=== PATIENT | female | born 1990 | race African-American/Black ===

== ENCOUNTER 2019-12-07 09:16 | Emergency (ER) | payer OTHER, SELFPAY ==
[2019-12-07 09:29] VITALS: BP 119/61; PULSE 92; RESP 99; TEMP 37.1; O2SAT 99
--- NOTE | 2019-12-07 10:46 | ED.GENADULT ---
HPI - General Adult General Chief complaint: Unspecified Stated complaint: feet and ankle swelling x 2 weeks Time Seen by Provider: 12/07/19 10:18 Source: patient Mode of arrival: ambulatory Limitations: no limitations History of Present Illness HPI narrative: Pt is a 29 y/o female who is that presents to the ED with c/o swelling to MYA ankles for 2 weeks that worsened today. 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 Pt states that she been off work for a month and she went back to work 2 days ago. She notes that she was not on her feet like usual 2 days ago because she was watching movies all night. Pt denies urinary Sx, N/V, fever, chills. She states that she has a H/o asthma but denies a H/o HTN. complaint: swelling to ankles Onset (ago): week(s) (2) Location: lower extremity (MYA ankles) Relieving factors: none Exacerbating factors: none Associated symptoms: denies other symptoms Related Data Home Medications Medication Instructions Recorded Confirmed No Home Medications 09/19/19 09/19/19 Allergies Allergy/AdvReac Type Severity Reaction Status Date / Time No Known Allergies Allergy Verified 09/19/19 10:26 Review of Systems Review of Systems: All systems reviewed & are unremarkable except as noted in HPI and below Constitutional: Constitutional: Denies chills and Denies fever(s) Gastrointestinal: Gastrointestinal: Denies nausea and Denies vomiting Genitourinary: Genitourinary: Denies other (urinary Sx) Musculoskeletal: Musculoskeletal: Reports other (swelling to MYA ankles) PMFSH Past Medical History Medical History (Updated 12/07/19 @ 11:53 by Josr Garg MD) Asthma Surgical History Surgical History (Updated 12/07/19 @ 11:30 by Shamika White) Hx of tonsillectomy Social History Social History Smoking status: Never smoker Substance use type: marijuana Gender identity (if verbalized by the patient): Female Exam Narrative: Exam Narrative: GENERAL: Well-appearing, well-nourished, and in no acute distress. HEAD: Normocephalic, atraumatic. EYES: PERRLA and EOMI. ENT: Nares clear, no rhinorrhea or epistaxis. Mucous membranes moist. NECK: Supple. CHEST: Clear to auscultation. No respiratory distress. HEART: Regular rate and rhythm. No murmur heard. Normal peripheral pulses. ABDOMEN: Soft, non tender, non distended, normal active bowel sounds. EXTREMITIES: Normal range of motion. mild edema. SKIN: Warm, dry, no rash. NEURO: No focal deficits. Alert and oriented x3. PSYCH: Normal mood and affect. Course Course Emergency Course: Inform patient about her lab work. Advised to keep her legs elevated or wear knee highs. Also recommended to cut down salt intake. Follow-up with OB doctor in the next few days. Vital Signs Vital signs: Vital Signs Temperature 37.1 C 12/07/19 09:29 Pulse Rate 92 12/07/19 09:29 Respiratory Rate 99 H 12/07/19 09:29 Blood Pressure 119/61 12/07/19 09:29 Pulse Oximetry 99 12/07/19 09:29 Temperature 37.1 C 12/07/19 09:29 Pulse Rate 92 12/07/19 09:29 Respiratory Rate 99 H 12/07/19 09:29 Blood Pressure 119/61 12/07/19 09:29 Pulse Oximetry 99 12/07/19 09:29 Medical Decision Making Vital Signs Vital Signs: Vital Signs Temperature 37.1 C 12/07/19 09:29 Pulse Rate 92 12/07/19 09:29 Respiratory Rate 99 H 12/07/19 09:29 Blood Pressure 119/61 12/07/19 09:29 Pulse Oximetry 99 12/07/19 09:29 Temperature 37.1 C 12/07/19 09:29 Pulse Rate 92 12/07/19 09:29 Respiratory Rate 99 H 12/07/19 09:29 Blood Pressure 119/61 12/07/19 09:29 Pulse Oximetry 99 12/07/19 09:29 Lab Data Result diagrams: 12/07/19 10:49 12/07/19 10:49 Labs: Lab Results 12/07/19 12/07/19 12/07/19 Range/Units 10:49 10:49 10:49 WBC 12.1 H (4.5-10.0) K/mm3 RBC 3.89 L (4.2-5.4) M/mm3
[2019-12-07 10:57] LABS: Basophils Percent Auto 0.3 % (0.2-1.2); Eosinophils Absolute Auto 0.2 K/mm3 (0-0.3); Eosinophils Percent Auto 1.7 % (0-4.4); Hematocrit 32.6 % (37.0-47.0); Hemoglobin 10.4 g/dL (12.0-15.0); Immature Granulocyte Absolute 0.07 K/mm3 (0.00-0.031); Immature Granulocyte Percent A 0.6 % (0-0.5); Lymphocytes Absolute Auto 1.93 K/mm3 (0.9-3.2); Mean Corpuscular HGB Conc 31.9 g/dl (32-36); Mean Corpuscular Hemoglobin 26.7 pg (26-34); Mean Corpuscular Volume 83.8 fl (80-100); Monocytes Absolute Auto 0.9 K/mm3 (0.1-0.6); Monocytes Percent Auto 7.6 % (2.6-8.5); Neutrophils Absolute Auto 8.9 K/mm3 (1.3-6.7); Neutrophils Percent Auto 73.8 % (45.5-73.1); Platelet Count Result 331 k/mm3 (150-375); Red Blood Count 3.89 M/mm3 (4.2-5.4); Red Cell Distribution Width 15.9 % (11.5-14.5); White Blood Count 12.1 K/mm3 (4.5-10.0)
[2019-12-07 11:01] LABS: Add Urine Microscopic? YES; Appearance Urine Cloudy (Clear); Bacteria Urine Trace /hpf; Bilirubin Urine Negative (Negative); Blood Urine Negative (Negative); Color Urine Yellow (Yellow); Glucose Urine UA Negative (Negative); Ketones Urine Negative (Negative); Leukocyte Esterase Ur 2+ LEU/UL (Negative); Mucus Urine Few /lpf; Nitrate Urine Negative (Negative); Protein Urine 1+ mg/dL (Negative); RBC Urine 0-2 /hpf (0-2); Squamous Epithelial Cell Urine Many /hpf (Few); Urobilinogen Urine Negative mg/dL (<2.0); WBC Urine 0-3 /hpf
[2019-12-07 11:10] LABS: Alanine Aminotransferase 9 U/L (4-35); Albumin Level 3.2 g/dL (3.5-5.1); Alkaline Phosphatase 43 U/L (38-126); Aspartate Amino Transferase 15 U/L (14-36); Bilirubin,Total 0.1 mg/dL (0.2-1.3); Blood Urea Nitrogen 5 mg/dL (7-17); Calcium 8.5 mg/dL (8.4-10.2); Carbon Dioxide 23 mmol/L (22-30); Chloride 106 mmol/L (98-107); Estimated CRCL calculation 149 ml/min; Estimated Glomerular Filt Rate > 60; Glucose 76 mg/dL (65-105); Potassium 3.6 mmol/L (3.4-5.0); Sodium 135 mmol/L (137-145)
[2019-12-07 11:58] VITALS: BP 120/78; PULSE 97; RESP 18; O2SAT 99
== END 2019-12-07 11:59 | disposition home or self-care (01) ==
PROVIDERS: Emergency Provider Family Medicine
DX: O26.899 Other specified pregnancy related conditions, unspecified trimester (principal); R60.0 Localized edema; O99.519 Diseases of the respiratory system complicating pregnancy, unspecified trimester; J45.909 Unspecified asthma, uncomplicated; Z3A.00 Weeks of gestation of pregnancy not specified
CPT/HCPCS: 36415; 80053; 81001; 85025; 99283

== ENCOUNTER 2020-04-18 12:56 | Inpatient (IN) | payer OTHER, SELFPAY ==
[2020-04-18] VITALS (17 sets, daily range): BP systolic 104–129; BP diastolic 57–86; PULSE 66–154; RESP 18; TEMP 36.8–37.2; O2SAT 97; BMI 32.1
[2020-04-18 15:26] LABS: Basophils Percent Auto 0.3 % (0.2-1.2); Eosinophils Absolute Auto 0.1 K/mm3 (0-0.3); Eosinophils Percent Auto 0.4 % (0-4.4); Hematocrit 36.5 % (37.0-47.0); Hemoglobin 11.8 g/dL (12.0-15.0); Immature Granulocyte Absolute 0.05 K/mm3 (0.00-0.031); Immature Granulocyte Percent A 0.3 % (0-0.5); Lymphocytes Absolute Auto 2.84 K/mm3 (0.9-3.2); Lymphocytes Percent Auto 18.3 % (18.3-44.2); Mean Corpuscular HGB Conc 32.3 g/dl (32-36); Mean Corpuscular Hemoglobin 25.4 pg (26-34); Mean Corpuscular Volume 78.7 fl (80-100); Mean Platelet Volume 9.5 fl (7.4-10.4); Monocytes Absolute Auto 1.4 K/mm3 (0.1-0.6); Monocytes Percent Auto 9.1 % (2.6-8.5); Neutrophils Absolute Auto 11.2 K/mm3 (1.3-6.7); Neutrophils Percent Auto 71.6 % (45.5-73.1); Platelet Count Result 357 k/mm3 (150-375); Red Blood Count 4.64 M/mm3 (4.2-5.4); Red Cell Distribution Width 16.2 % (11.5-14.5); White Blood Count 15.6 K/mm3 (4.5-10.0)
[2020-04-18] MEDS: LACTATED RINGERS 1,000 ML 125 ML IV CONT (15:28)
[2020-04-18] MEDS: AMPICILLIN 2 GM/NS 100 ML 2 GM/100 ML BAG IVPB (15:28)
[2020-04-18] MEDS: OXYTOCIN 30 UNITS/NS 500 ML 30 UNITS/500 ML BAG 999 UNITS IV CONT (15:54)
--- NOTE | 2020-04-18 15:59 | P.PCNOB_ITS ---
OB - Delivery Note Procedure Delivery date: 04/18/20 Route of delivery: Episiotomy description: None Laceration description: None Specimen: No Estimated blood loss (mL): 200 Anesthesia type: None Disposition: floor Narrative: Patient prepped and draped in usual manner for this procedure. Maternal expulsive efforts readily delivered vertex and the rest of baby delivered without difficulty. Placenta was delivered without difficulty. Cervix vagina and vulva were inspected with no lacerations or tears. At this point the uterus was well contracted there was minimal bleeding and the procedure was considered terminated. [place] Baby Weeks of gestation at delivery: 39 gender: Female Weight (pounds): 6 Weight (ounces): 2 score one minute: 8 score five minutes: 9
--- NOTE | 2020-04-18 15:59 | WPDHPUPDATE1 ---
History and Physical Update Update Date/Time: 04/18/20 15:59 History and Physical has been reviewed, including an updated exam of the patient. There are NO changes in the patient's condition. Risks, benefits, and alternatives have been discussed and questions answered. Patient agrees to proceed with procedure.
--- NOTE | 2020-04-18 15:59 | WPDOBADMIT ---
Obstetrics - Admit Note Admission Note: record reviewed. No pertinent additions to the history and/or any subsequent changes in the physical findings that are not consistent with the expected course of the were found. Additions to the history and/or subsequent changes in the physical findings follow. None.
[2020-04-18] MEDS: OXYTOCIN 30 UNITS/NS 500 ML 30 UNITS/500 ML BAG 125 UNITS IV CONT (16:14)
[2020-04-18] MEDS: IBUPROFEN 600 MG TABLET PO (16:40)
--- NOTE | 2020-04-18 16:58 | LDADM ---
This patient, Jessica Perez, was admitted to Labor/Delivery/Recovery 106 on 04/18/20 at 12:57. Plans for labor, pain management and were discussed with patient. Patient/family oriented to hospital policies and general routines including ID bracelet, bed and alarms, visiting hours, pain management, procedures, bathroom and other care routines, personal items, smoking policy, room service/diet and guest tray routines, security routines, and visiting hours. Patient/Family are encouraged to report perceived risks to care and to ask questions if they do not understand what they are told or what they should do. See OBIX for further documentation.
[2020-04-18] MEDS: WITCH HAZEL 40 PADS 1 PAD TOPICAL (18:57)
--- NOTE | 2020-04-18 19:10 | PC.NURSE ---
Patient transferred to post room # via ( ). Support person present. Oriented to unit, room, information board, rooming in, admission packet and security measures. Patient verbalizes understanding.
--- NOTE | 2020-04-18 19:10 | PC.NURSE ---
Patient transferred to post room # 286 . Support person present. Oriented to unit, room, information board, rooming in, admission packet and security measures. Patient verbalizes understanding.
[2020-04-18] MEDS: ACETAMINOPHEN 325 MG TABLET 650 MG PO (20:27)
[2020-04-19] MEDS: ACETAMINOPHEN 325 MG TABLET 650 MG PO (02:31)
[2020-04-19 03:49] LABS: Hemoglobin 9.7 g/dL (12.0-15.0)
--- NOTE | 2020-04-19 07:00 | P.DS_ITS ---
OB - DS: Summary OB Procedures : None OB Procedures Intrapartum: Spontaneous Vag Delivery OB Procedures: : None Time Spent with Patient Time attestation: Total time spent providing and/or coordinating discharge services: DS: Data Data Completed and Pending Labs on day of discharge: Labs from last 24 hours 04/19/20 04/18/20 04/18/20 03:41 15:19 15:19 WBC RBC Hgb 9.7 L Hct 30.0 L MCV MCH MCHC RDW Plt Count MPV Immature Gran % (Auto) Neut % (Auto) Lymph % (Auto) [place] % (Auto) Eos % (Auto) Baso % (Auto) Lymph # (Auto) [place] # (Auto) Eos # (Auto) Baso # (Auto) Abs Immat Gran (auto) Absolute Neuts (auto) Absolute Nucleated RBC Nucleated RBC % RPR Pending Blood Type B Positive Antibody Screen Negative 04/18/20 15:19 WBC 15.6 H RBC 4.64 Hgb 11.8 L Hct 36.5 L MCV 78.7 L MCH 25.4 L MCHC 32.3 RDW 16.2 H Plt Count 357 MPV 9.5 Immature Gran % (Auto) 0.3 Neut % (Auto) 71.6 Lymph % (Auto) 18.3 [place] % (Auto) 9.1 H Eos % (Auto) 0.4 Baso % (Auto) 0.3 Lymph # (Auto) 2.84 [place] # (Auto) 1.4 H Eos # (Auto) 0.1 Baso # (Auto) 0.0 Abs Immat Gran (auto) 0.05 H Absolute Neuts (auto) 11.2 H Absolute Nucleated RBC 0.0 Nucleated RBC % 0.0 RPR Blood Type Antibody Screen Discharge Plan Discharge Discharging Clinician: Tee Glass Anticipated Discharge Date/Time: 04/20/20 07:00 Patient Disposition: Home, Self-Care Activity: as tolerated Diet: as tolerated Patient Instructions: Antibiotic Form Stand Alone Forms: General Discharge Information Follow-up/Referrals: Tee Glass MD [Physician] - 3 Weeks Discharge Medications: New hydrocodone-acetaminophen 5-325 mg Tablet 1 tablet PO Q3H PRN (Reason: Moderate Pain (4-6)) Qty: 10 RF: 0 ibuprofen 600 mg Tablet 600 mg PO Q6H PRN (Reason: Cramping) Qty: 20 RF: 0 No Action No Home Medications RF: 0 Date of admission: 04/18/20 12:57 Primary Care Provider: Dima Joy Admitting Provider: Tee Glass Attending physician on admission: Tee Glass
[2020-04-19] MEDS: IBUPROFEN 600 MG TABLET PO ×2 (08:49→16:28)
[2020-04-19 08:50] VITALS: BP 113/76; PULSE 62; RESP 15; TEMP 37.1; O2SAT 100
[2020-04-19 11:27] LABS: Rapid Plasma Reagin Non-Reactive (NonReactive)
--- NOTE | 2020-04-19 13:01 | PC.NURSE ---
Pt went outside for a minute. Left at nurses station/
[2020-04-19] MEDS: DOCUSATE SODIUM 100 MG CAPSULE PO (16:25)
[2020-04-19] MEDS: POLYSACCHARIDE IRON COMPLEX 150 MG CAPSULE PO (16:27)
[2020-04-19 20:25] VITALS: BP 110/70; PULSE 73; RESP 12; TEMP 37.6
[2020-04-20 08:35] VITALS: BP 113/68; PULSE 73; RESP 18; TEMP 37.5; O2SAT 100
[2020-04-20] MEDS: POLYSACCHARIDE IRON COMPLEX 150 MG CAPSULE PO (08:47)
[2020-04-20] MEDS: IBUPROFEN 600 MG TABLET PO (08:47)
[2020-04-20] MEDS: DOCUSATE SODIUM 100 MG CAPSULE PO (08:48)
[2020-04-23 11:19] VITALS: BP 114/68; PULSE 59; RESP 18; TEMP 36.6
--- NOTE | 2020-04-30 11:25 | P.DS_ITS ---
DS: Admitting Diagnosis Admitting Diagnosis Admitting Diagnosis: Encounter for supervision of normal , unspecified, third trimester OB - DS: Summary OB Procedures : None OB Procedures Intrapartum: Spontaneous Vag Delivery OB Procedures: : None Time Spent with Patient Time attestation: Total time spent providing and/or coordinating discharge services: Discharge Plan Discharge Discharging Clinician: Tee Glass Anticipated Discharge Date/Time: 04/20/20 07:00 Patient Disposition: Home, Self-Care Activity: as tolerated Diet: as tolerated Discharge Instructions: Education: Mom and Baby Guide Given to: Mother Follow-Up: Call your delivering provider's office for an appointment to be seen in: 3 weeks Mom and baby should come to the [facility] for the follow-up appointment. Appointment Date/Time: Thursday, April 23, 2020 at 11:00 a.m. What to expect at your follow-up visit: Blood Pressure Check Physical Assessment Call [phone] if you are unable to keep your appointment time. BREAST CARE: 1. Wear a snug supportive bra. 2. For engorgement discomfort: Bottle Feeding: A. May apply ice packs EPISIOTOMY/PERINEAL CARE: 1. Until bleeding stops, use your ney bottle after urinating 2. Change your pad frequently throughout the day 3. You may take sitz baths several times a day (fill your bathtub with warm water and soak for 20 minutes.) Do NOT bathe in the water 4. No tub baths until seen by your physician - You may shower ACTIVITY: 1. Rest as much as possible. 2. Do not exercise or lift anything heavier than your baby (such as laundry or other children.) 3. Avoid stairs or driving as much as possible. 4. Do not put anything into the vagina. No douching, tampons, or sexual activity until seen by physician. NOTIFY PHYSICIAN IF YOU HAVE ANY QUESTIONS OR IF ANY OF THE FOLLOWING SYMPTOMS OCCUR: 1. If your perineum becomes red, swollen, or more painful than what you have experienced in the hospital. 2. If your vaginal bleeding becomes foul smelling. 3. If your vaginal bleeding becomes more heavy than a period or if your bleeding changes from pink to bright red. However, you may pass an occasional walnut- sized clot once or twice for the first week . 4. If you experience a sharp, shooting pain in you calves. 5. If you discover a hard, reddened area on your breast or if you experience flu-like symptoms. DIET: 1. Eat regular, well-balanced meals. 2. Drink plenty of fluids daily. Stand Alone Forms: General Discharge Information Follow-up/Referrals: Tee Glass MD [Physician] - 3 Weeks Discharge Medications: New ibuprofen 600 mg Tablet 600 mg PO Q6H PRN (Reason: Cramping) Qty: 20 RF: 0 hydrocodone-acetaminophen 5-325 mg Tablet 1 tablet PO Q3H PRN (Reason: Moderate Pain (4-6)) Qty: 10 RF: 0 Date of admission: 04/18/20 12:57 Primary Care Provider: Dima Joy Admitting Provider: Tee Glass Discharge Date/Time: 04/20/20 14:06 Attending physician on admission: Tee Glass
== END 2020-04-20 14:06 | disposition home or self-care (01) | DRG 560 ==
LOC: ANHLDR 15:12 → ANHOB2 19:17
PROVIDERS: Admitting Provider Obstetrics & Gynecology; PCP Obstetrics & Gynecology; Visit Provider Obstetrics & Gynecology
DX: O62.3 Precipitate labor (principal); O99.824 Streptococcus B carrier state complicating childbirth; Z3A.39 39 weeks gestation of pregnancy; Z37.0 Single live birth
CPT/HCPCS: 36415; 85014; 85018; 85025; 86592; 86850; 86900; 86901; A9270; J0290; J2590; J7120

== ENCOUNTER 2021-05-06 10:25 | Emergency (ER) | payer OTHER, SELFPAY ==
--- NOTE | ~2021-05-06 | XR_ITS ---
EXAMINATION: XR lumbar spine 2-3V DATE: 05/06/2021 11:51 INDICATION: Low back pain. TECHNIQUE: Anteroposterior and lateral views of the lumbar spine, and cone-down lateral view of the l umbosacral junction were obtained. COMPARISON: 02/15/2015 FINDINGS: Alignment is normal. Vertebral body and disc heights are normal. No significant lumbar facet osteoart hritis. Bilateral hip and sacroiliac joint spaces are also normal. Sacral arches are intact. Couple p hleboliths in the pelvis. Normal bowel gas pattern. IMPRESSION: 1. Negative lumbar spine radiographs. Reviewed, dictated and finalized at location A.
[2021-05-06 10:34] VITALS: BP 105/63; PULSE 76; RESP 18; TEMP 37; O2SAT 98
--- NOTE | 2021-05-06 11:46 | ED.BACK ---
HPI - Back Pain/Injury General Chief Complaint: Back Pain/Injury Stated Complaint: back pain x 1 week Time Seen by Provider: 05/06/21 10:35 Source: patient Mode of arrival: ambulatory Limitations: no limitations History of Present Illness HPI Narrative: This is a 30 year old female that presents to the ER for low back pain worsening over the last couple of days. Reports history of low back problems for years. No recent injury or trauma. She took ibuprofen this morning with little relief. Denies fever, dysuria, hematuria, saddle anesthesia, or bowel/bladder incontinence. Related Data Allergies Allergy/AdvReac Type Severity Reaction Status Date / Time No Known Allergies Allergy Verified 05/06/21 10:38 Review of Systems Review of Systems: Narrative: CONSTITUTIONAL: Denies fever GENITOURINARY: Denies dysuria or hematuria. SKIN: Denies rash MUSCULOSKELETAL: Reports back pain, joint pain, and myalgia. NEUROLOGIC: Denies numbness, or weakness. All systems reviewed & are unremarkable except as noted in HPI and below PMFSH Past Medical History Medical History (Updated 05/06/21 @ 12:48 by Lela Feliz PA-C) Asthma Surgical History Surgical History (Updated 12/07/19 @ 11:30 by Shamika White) Hx of tonsillectomy Social History Social History Smoking status: Never smoker Substance use type: marijuana Gender identity (if verbalized by the patient): Female Spiritual care concerns: No Exam Narrative: Exam Narrative: GENERAL: Well-appearing, well-nourished, and in no acute distress. HEAD: Normocephalic, atraumatic. EYES: EOMI. CHEST: Clear to auscultation. No respiratory distress. No wheezes rales or rhonchi HEART: Regular rate and rhythm. No murmur heard. Normal peripheral pulses. BACK: No midline spinal tenderness. EXTREMITIES: Normal range of motion. No edema. Strength equal in bilateral lower extremities (5/5) SKIN: Warm, dry, no rash. NEURO: No focal deficits. Alert and oriented x3. PSYCH: Normal mood and affect Course Vital Signs Vital signs: Vital Signs Temperature 98.6 F 05/06/21 10:34 Pulse Rate 76 05/06/21 10:34 Respiratory Rate 18 05/06/21 10:34 Blood Pressure 105/63 05/06/21 10:34 Pulse Oximetry 98 05/06/21 10:34 Temperature 98.6 F 05/06/21 10:34 Pulse Rate 76 05/06/21 10:34 Respiratory Rate 18 05/06/21 10:34 Blood Pressure 105/63 05/06/21 10:34 Pulse Oximetry 98 05/06/21 10:34 MDM - Back Pain/Injury MDM Narrative Medical decision making narrative: Patient presents to the emergency department for low back pain over the last couple of days. No recent injury or trauma. She is neurologically intact. Lumbar spine x-rays without acute findings. Patient reports improvement with Tylenol and Valium. She was instructed to rest, ice and take [id number] pain medications as needed. Will be given muscle relaxer as needed for pain. She is to follow-up with her primary care doctor. She was given warnings to return to the ER Imaging Data Radiologist's impression: ITS Impressions Lumbar Spine X-Ray 05/06/21 11:59 IMPRESSION: 1. Negative lumbar spine radiographs. Critical Care Time Critical Care Time Critical Care Time: No Discharge Plan Discharge Clinical Impression: Strain of lumbar region Qualifiers: Encounter type: initial encounter Qualified Code(s): S39.012A - Strain of muscle, fascia and tendon of lower back, initial encounter Patient Disposition: Home, Self-Care Condition: Stable Instructions: Acute Low Back Pain (ED) Additional Instructions: Return to the ER if you experience fever, pain or burning with urination, blood in the urine, weakness, numbness, bowel/bladder incontinence, or any other symptoms that are concerning to you Rest, use ice/heat, take anti-inflammatories (Aleve, Ibuprofen, Naproxen, etc) or Tylenol as needed for pain as well as muscle re
[2021-05-06] MEDS: ACETAMINOPHEN 500 MG TABLET 1000 MG PO (12:03)
[2021-05-06] MEDS: diazePAM INJ (*CRX) 10 MG/2 ML SYRINGE 5 MG IM (12:04)
[2021-05-06 13:22] VITALS: BP 107/68; PULSE 78; RESP 20; O2SAT 98
== END 2021-05-06 13:23 | disposition home or self-care (01) ==
PROVIDERS: Emergency Provider Emergency Medicine; PCP Obstetrics & Gynecology
DX: S39.012A Strain of muscle, fascia and tendon of lower back, initial encounter (principal); X58.XXXA Exposure to other specified factors, initial encounter
CPT/HCPCS: 72100; 96372; 99283; A9270; J3360

== ENCOUNTER 2023-03-18 11:06 | Emergency (ER) | payer OTHER, SELFPAY ==
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
--- NOTE | ~2023-03-18 | XR_ITS ---
Lumbosacral Spine: AP and lateral views Clinical History: Pain Findings: The normal lordotic curve is maintained. The vertebral bodies and posterior elements are i ntact. The intervertebral disc spaces are preserved. The sacroiliac joints are normally outlined. Impression: No significant abnormality. Reviewed, dictated and finalized at [facility]. Impression: No significant abnormality.
[2023-03-18 11:12] VITALS: BP 109/44; PULSE 78; RESP 16; TEMP 36.9; O2SAT 98
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
== END 2023-03-18 12:38 | disposition home or self-care (01) ==
PROVIDERS: Emergency Provider Nurse Practitioner Family; PCP Obstetrics & Gynecology
DX: S39.92XA Unspecified injury of lower back, initial encounter (principal); S20.212A Contusion of left front wall of thorax, initial encounter; J45.909 Unspecified asthma, uncomplicated; V43.52XA Car driver injured in collision with other type car in traffic accident, initial encounter
CPT/HCPCS: 71046; 71100; 72100; 99284

== ENCOUNTER 2023-05-25 14:51 | Outpatient (CLI) | payer OTHER, SELFPAY ==
--- NOTE | ~2023-05-25 | MM_ITS ---
EXAMINATION: MM screening zack BI w sean HISTORY: Screening TECHNIQUE: Craniocaudal and mediolateral oblique 3-D tomosynthesis images were obtained and synthetic 2-D images were generated. CAD analysis was submitted and interpreted. COMPARISON: No prior studies for comparison. BREAST PARENCHYMAL COMPOSITION: There are scattered areas of fibroglandular density. FINDINGS: There are focal asymmetries in the central aspect of the left breast on CC view. There is no mammographic evidence for malignancy in the right breast. IMPRESSION: 1. Nodular left breast asymmetries located centrally. 2. Additional mammographic views and possible breast ultrasound are recommended. BI-RADS Category 0: Incomplete: Needs additional imaging evaluation. Reviewed, dictated and finalized at location A. IMPRESSION: 1. Nodular left breast asymmetries located centrally. 2. Additional mammographic views and possible breast ultrasound are recommended . BI-RADS Category 0: Incomplete: Needs additional imaging evaluation.
== END 2023-05-25 14:52 | disposition home or self-care (01) ==
LOC: ANHIMG 14:55
PROVIDERS: PCP Internal Medicine Gastroenterology; Visit Provider Obstetrics & Gynecology Gynecology
DX: Z12.31 Encounter for screening mammogram for malignant neoplasm of breast (principal); R92.8 Other abnormal and inconclusive findings on diagnostic imaging of breast
CPT/HCPCS: 77063; 77067

== ENCOUNTER 2023-06-03 11:37 | Outpatient (CLI) | payer OTHER, SELFPAY ==
--- NOTE | ~2023-06-03 | MMUS_ITS ---
EXAMINATION: MM diagnostic zack LT w sean, US breast LT limited HISTORY: Left breast asymmetry on screening mammogram TECHNIQUE: Additional 3-D tomosynthesis images of the left breast were performed and synthetic 2-D im ages were generated. CAD analysis was submitted and interpreted. High resolution limited left breast ultrasound was performed. COMPARISON: 05/25/2023 FINDINGS: MAMMOGRAPHIC FINDINGS: An asymmetry persists in the posterior third of the slightly upper breast on the craniocaudal view. N o suspicious calcification or architectural distortion are identified. ULTRASOUND: There is no evidence of focal abnormal solid or cystic mass in the vicinity of the mammographic findi ng in question. IMPRESSION: 1. Probably benign left breast asymmetry. 2. Recommend 6 month follow-up left diagnostic mammogram with possible ultrasound. BI-RADS category 3, probably benign findings. Reviewed, dictated and finalized at location A. IMPRESSION: 1. Probably benign left breast asymmetry. 2. Recommend 6 month follow-up left diagnostic mammogram with possible ultrasou nd. BI-RADS category 3, probably benign findings.
== END 2023-06-03 11:38 | disposition home or self-care (01) ==
PROVIDERS: PCP Internal Medicine Gastroenterology; Visit Provider Obstetrics & Gynecology Gynecology
DX: R92.8 Other abnormal and inconclusive findings on diagnostic imaging of breast (principal)
CPT/HCPCS: 76642; 77061; 77065; G0279

== ENCOUNTER 2024-04-08 13:34 | Outpatient (CLI) | payer OTHER, SELFPAY ==
--- NOTE | ~2024-04-08 | MM_ITS ---
EXAMINATION: MM diagnostic zack LT w sean HISTORY: Follow-up left breast asymmetries TECHNIQUE: Additional 3-D tomosynthesis images of the left breast were performed and synthetic 2-D im ages were generated. CAD analysis was submitted and interpreted. COMPARISON: 05/25/2023 BREAST PARENCHYMAL COMPOSITION: Not dense: There are scattered areas of fibroglandular density. FINDINGS: There are no suspicious masses, calcifications or architectural distortion in the left miguel st to suggest malignancy. IMPRESSION: 1. No mammographic evidence for malignancy in the left breast. 2. Routine yearly screening mammogram and regular clinical breast examination are recommended. BI-RADS Category 1: Negative Reviewed, dictated and finalized at location B. IMPRESSION: 1. No mammographic evidence for malignancy in the left breast. 2. Routine yearly screening mammogram and regular clinical breast examination a re recommended. BI-RADS Category 1: Negative
== END 2024-04-08 13:35 | disposition home or self-care (01) ==
PROVIDERS: PCP Internal Medicine Gastroenterology; Visit Provider Obstetrics & Gynecology Gynecology
DX: R92.8 Other abnormal and inconclusive findings on diagnostic imaging of breast (principal)
CPT/HCPCS: 77061; 77065; G0279